=== PATIENT | male | born 1970 | race Caucasian/White ===

== ENCOUNTER 2017-12-09 10:57 | Observation (INO) | payer BC ==
[2017-12-09 12:06] LABS: Troponin I Less than 0.010 ng/mL (< 0.028)
[2017-12-09] MEDS ORDERED: Acetaminophen 325 MG TAB PO PRN (13:19)
[2017-12-09 13:44] VITALS: BMI 30.7
[2017-12-09] MEDS ORDERED: Aspirin 325 MG TAB PO SCH (14:00)
[2017-12-09 14:25] LABS: Troponin I Less than 0.010 ng/mL (< 0.028)
--- NOTE | 2017-12-09 14:40 | PDOC.FPRHP ---
- History of Present Illness Chief Complaint: chest pain History of Present Illness: 47 yo male with PMH HTN, HLD, STEMI with 2 stents placed in 2017. Presenting today for chest pain. Woke him up from rest this morning with 4/10 chest pressure mid-sternal. Lasted for about an hour and went away on its own. Woke back up later with chest pain and numbness in left arm. Assoc diaphoresis. No N/ V/D, [facility], vision disturbances, SOB. Patient's doctor is Dr. Mason in [place]. Was last seen there 2 months ago. - Allergies/Adverse Reactions Allergies Allergy/AdvReac Type Severity Reaction Status Date / Time No Known Allergies Allergy Verified 12/09/17 13:51 - Home Medications Medication Instructions Recorded Confirmed Type Carvedilol [Coreg] 3.125 mg PO BID #60 tab 06/16/16 12/09/17 Rx Clopidogrel Bisulfate [Plavix] 75 mg PO DAILY #30 tab 06/16/16 12/09/17 Rx Aspirin [Aspirin Chewable Tablet] 81 mg PO 209912/09/17 12/09/17 History Lisinopril 10 mg PO 209912/09/17 12/09/17 History Rosuvastatin [Crestor] 20 mg PO 209912/09/17 12/09/17 History - History PMHx: HTN, HLD, Hx of STEMI PSHx: stent placed x2 May 2016 FHx: Dad: HTN, DMII - Review of Systems General: denies: fever/chills Eyes: denies: eye pain, vision changes ENT: denies: nasal congestion, rhinorrhea Respiratory: denies: cough, shortness of breath Cardiovascular: reports: chest pain. denies: edema Gastrointestinal: denies: nausea, vomiting, diarrhea, abdominal pain Genitourinary: denies: incontinence, dysuria Skin: denies: rashes, lesions Musculoskeletal: reports: other (chronic back pain) Neurological: reports: numbness (left arm). denies: syncope - Vital signs BP: 110/72 HR: 60 RR: 18 Tmax: 97.2 Pox: 98% on RA Wt: 94kg - Physical Exam Constitutional: NAD, awake, alert and oriented, well developed HEENT: normocephalic and atraumatic, PERRLA, EOMI, grossly normal vision, MMM, oropharynx clear Neck: supple, FROM, no thyromegaly Heart: RRR, normal S1/S2, no edema Lungs: CTAB, no respiratory distress, no wheezing Abdomen: soft, non-tender, bowel sounds present Musculoskeletal: normal structure, normal tone, ROM grossly normal Neurological: no focal deficit, CN II-XII intact, normal sensation Skin: no rash/lesions Heme/Lymphatic: no unusual bruising or bleeding Psychiatric: normal mood and affect, good judgment and insight FMR H&P: Results - EKG Interpretation EKG: anterior infarct possible inferior infarct Need to compare to May 2016 EKGs because he had similar STEMI at that time and this could be old FMR H&P: A/P - Problem List (1) Chest pain, rule out acute myocardial infarction Current Visit: Yes Status: Acute Code(s): R07.9 - CHEST PAIN, UNSPECIFIED (2) HTN (hypertension) Current Visit: Yes Status: Acute Code(s): I10 - ESSENTIAL (PRIMARY) HYPERTENSION (3) HLD (hyperlipidemia) Current Visit: Yes Status: Acute Code(s): E78.5 - HYPERLIPIDEMIA, UNSPECIFIED (4) History of ST elevation myocardial infarction Current Visit: Yes Status: Acute Code(s): I25.2 - OLD MYOCARDIAL INFARCTION - Plan 1. CP r/o NSTEMI - Hx of STEMI in May 2016. Received cath with [address] Alston at that time - CE negative x3 - HEART score 4 - based on history, will stress in the morning - hold food, coreg, plavix after midnight 2. HTN - continue home lisinoprol 3. HLD - continue rosuvistatin Attending Addendum - Attending Addendum Date/Time: 12/09/172141 I personally evaluated the patient and discussed the management with Dr. Laughlin I agree with the History, Examination, Assessment and Plan documented above with any addition or exceptions noted below- Briefly this is a 47 year old male with h/o CAD s/p DE 05/2016 s/p stent placement 05/2016 presented c/o substernal pressure like chest pain similar to pain when he had his DE. Pain radiated down hie left arm. Denies any associated N/V, SOB. (+) diaphoresis. States that he has had cardiology follow-up since his DE and is compliant with his medications. States that he has not had any follow-up testing since his DE. PMH/ PS/All/Meds reviewed and agree with resident's documentation. Afebrle VSS exam repeated by me and agree with resident's findings. Labs: trop I <0.010 x 3. EKS - NSR, no acute ST changes; no change from EKG in 01/2017. A/P: 1) Chest pain - HEART score=4; plan for cardiac stress test and echo. Continue home meds.
[2017-12-09 17:34] LABS: Troponin I Less than 0.010 ng/mL (< 0.028)
[2017-12-09] MEDS ORDERED: Lisinopril 10 MG TAB PO SCH (21:00)
[2017-12-09] MEDS ORDERED: Rosuvastatin 20 MG TAB PO SCH (21:00)
[2017-12-10 06:28] LABS: #Eosinphils 0.2 thou/uL (0.0-0.7); #Lymphocytes 1.7 thou/uL (1.20-3.40); #Monocytes 0.8 thou/uL (0.11-0.59); #Neutrophils 7.3 thou/uL (1.40-6.50); %Basophils 0.4 % (0.0-1.0); %Lymphocytes 16.9 % (21.0-51.0); %Neutrophils 72.7 % (42.0-75.0); Hemoglobin 16.7 g/dL (14.0-18.0); Mean Corpuscular Hemoglobin 35.1 pg (27.0-31.0); Mean Corpuscular Volume 97.4 fL (78.0-98.0); Mean Platelet Volume 7.5 fL (7.4-10.4); Platelet Count 126 thou/uL (130-400); RBC Distribution Width 11.9 % (11.5-14.5); Red Blood Cell (RBC) Count 4.75 mill/uL (4.70-6.10); White Blood Cell (WBC) Count 10.1 thou/uL (4.8-10.8)
[2017-12-10 06:51] LABS: ALT (SGPT) 40 U/L (8-55); AST (SGOT) 39 U/L (5-34); Albumin 3.9 g/dL (3.5-5.0); Alkaline Phosphatase 88 U/L (40-150); Anion Gap 13 mmol/L (10-20); BUN (Urea Nitrogen) 10 mg/dL (8.9-20.6); Bilirubin, Total 1.8 mg/dL (0.2-1.2); Calc. Creatinine Clearance 138 mL/min (70-130); Calcium 9.1 mg/dL (7.8-10.44); Carbon Dioxide 24 mmol/L (22-29); Chloride 105 mmol/L (98-107); Estimated GFR-MDRD 90; Globulin 2.9 g/dL (2.4-3.5); Glucose 97 mg/dL (70-105); Potassium 3.6 mmol/L (3.5-5.1); Protein, Total 6.8 g/dL (6.0-8.3); Sodium 138 mmol/L (136-145)
--- NOTE | 2017-12-10 08:42 | PDOC.FM ---
- Subjective Subjective: Loose stools x2. Aside from that NAEO. Chest pain has resolved. Patient reports feeling "better" overall. - Objective MAR Reviewed: Yes Vital Signs & Weight: Vital Signs (12 hours) Temp Pulse Resp BP BP Pulse Ox 12/10/17 07:31 98.5 F 61 18 12/10/17 07:21 98.2 F 65 20 101/58 L 95 12/10/17 04:22 98.5 F 61 18 116/71 95 12/09/17 21:06 117/73 Weight Weight 95.345 kg I&O: 12/09/17 12/10/17 12/11/17 06:59 06:59 06:59 Intake Total 860 Balance 860 Result Diagrams: 12/10/17 06:13 12/10/17 06:13 <Chantell Payne - Last Filed: 12/10/17 14:54> - Objective Vital Signs & Weight: Vital Signs (12 hours) Temp Pulse Resp BP BP Pulse Ox 12/10/17 11:51 98.0 F 72 18 120/73 96 12/10/17 07:31 98.5 F 61 18 12/10/17 07:21 98.2 F 65 20 101/58 L 95 12/10/17 04:22 98.5 F 61 18 116/71 95 Weight Weight 95.345 kg I&O: 12/09/17 12/10/17 12/11/17 06:59 06:59 06:59 Intake Total 860 Balance 860 Result Diagrams: 12/10/17 06:13 12/10/17 06:13 <Gustavo Walls - Last Filed: 12/10/17 16:11> Phys Exam - Physical Examination Constitutional: NAD Neck: supple Cardiovascular: RRR, no significant murmur Gastrointestinal: soft, non-tender Musculoskeletal: no edema Psychiatric: normal affect, A&O x 3 <Chantell Payne - Last Filed: 12/10/17 14:54> Dx/Plan (1) Chest pain, rule out acute myocardial infarction Code(s): R07.9 - CHEST PAIN, UNSPECIFIED Status: Acute (2) HLD (hyperlipidemia) Code(s): E78.5 - HYPERLIPIDEMIA, UNSPECIFIED Status: Acute (3) HTN (hypertension) Code(s): I10 - ESSENTIAL (PRIMARY) HYPERTENSION Status: Acute (4) History of ST elevation myocardial infarction Code(s): I25.2 - OLD MYOCARDIAL INFARCTION Status: Acute - Plan Plan: 1. Typical Chest Pain r/o NSTEMI - Hx of STEMI in May 2016 (confirmed with prior EKGs). Received cath with [address] Alston at that time - Cardiac enzymes negative x3 - HEART score 4 - Stress test (part 2) this AM - Echo -Consulted Dr. Means who recommended we re-consult if stress test comes back positive. We kindly appreciate her recommendations. 2. HTN - continue home lisinoprol 3. HLD - continue rosuvistatin 4. Thrombocytopenia -Plts 126 down from 127. Prior records show Plts in same level around 05/2016 ( prior STEMI) -Will investiage further 5. Hyperbilirubinemia -Improvin.0 -> 1.82 6. Elevated AST -Improving 51-> 39 DVT ppx: SCDs Code: Full Plan discussed with Dr. Walls <Chantell Payne - Last Filed: 12/10/17 14:54> Attending Addendum - Attending Addendum Date/Time: 12/10/17 [id number] I personally evaluated the patient and discussed the management with Dr. Liza Payne. I agree with the History, Examination, Assessment and Plan documented above with any addition or exceptions noted below. Totally asymptomatic over night and this morning. Feels well. Afebrile V/S Stable. Lungs: CTA, Cor: RRR, no murmur. Abd: neg. No edema. Stress test completed but results still pending at the time of my visit at 12: 30. Await results before disposition. <Gustavo Walls - Last Filed: 12/10/17 16:11>
--- NOTE | 2017-12-10 13:34 | NM ---
NUCLEAR MEDICINE CARDIAC PERFUSION EXAMINATION: History: 47-year-old male with chest pain. History of coronary artery disease and prior myocardial in farction. Technique: A two day Nuclear Medicine cardiac perfusion examination was performed. Rest images were o btained using 21.5 mCi Technetium 99M Sestamibi. Stress images were obtained giving 27.1 mCi Techneti um 99M Sestamibi at peak of exercise on a treadmill using a Aditya protocol. The patient achieved 91% maximum projected heart rate. FINDINGS: There is a large size, severe intensity fixed perfusion defect at the apex from prior myocardial infa rction. No obvious reversible perfusion defect is seen. Gated images show apical hypokinesis with ejection fraction of 48%. EDV: 140 ml. LHR: 0.3 TID: 0.9 IMPRESSION: 1. No evidence of ischemia. 2. Fixed defect at the apex from prior myocardial infarction. POS: [facility]RAD
[2017-12-10 16:38] VITALS: BP 121/75; TEMP 97.2
--- NOTE | 2017-12-11 11:57 | DIS-2 ---
DATE OF ADMISSION: 12/09/2017 DATE OF DISCHARGE: 12/10/2017 RESIDENT: Chantell Payne. ADMITTING ATTENDING: Dr. Daquan Momin. DISCHARGE ATTENDING: Dr. Gustavo Walls. CONSULTATIONS: None. PROCEDURES: Nuclear stress test. PRIMARY DIAGNOSIS: Acute coronary syndrome rule out [id number] myocardial infarction. SECONDARY DIAGNOSES: Hypertension, hyperlipidemia, history of myocardial infarction status post cath x2 stents in 2017. DISCHARGE MEDICATIONS: Continued all home medications. No added medications in hospital. 1. Carvedilol 3.125 mg p.o. b.i.d. 2. Clopidogrel bisulfate (Plavix) 75 mg p.o. daily. 3. Lisinopril 10 mg p.o. daily. 4. Aspirin 81 mg p.o. daily. 5. Crestor 20 mg p.o. daily. DISCONTINUED MEDICATIONS: None. HISTORY OF PRESENT ILLNESS AND HOSPITAL COURSE: Mr. Cunha is a 47-year-old male with past medica l history of [place] status post catheterization x2 stents in 2017, who presented with 2 episodes of typic al chest pain. It was 4/10, described as pressure, midsternal, lasting 1 hour and resolved on its ow n. Second episode was later that evening involving left arm numbness and diaphoresis. Visited the [facility] ED where they gave him nitroglycerin and aspirin, which relieved the pain. He was then t ransferred to [place] for ACS rule out NSTEMI workup. EKG showed old inferior infarcts. Another EKG in 2017 showed STEMIs in the anterior leads. He was given a score of 4. Cardiac enzymes w ere negative x3. He underwent nuclear stress test which showed no evidence of ischemia and a fixed d efect at the apex from prior myocardial infarction. His echo was negative as well showed an ejection fraction was estimated to be 60-65% with apical hypokinesis. Normal right ventricular size and func tion. Left atrium is normal size. Right atrium normal size. Presence of mild tricuspid regurgitati on and mild to moderate pulmonic regurgitation present. In addition, chest x-ray taken in the ED [facility] had no signs of acute intrathoracic disease. After discussion with Dr. Means with a negative s tress test, patient was discharged home continuing all home medications. DISPOSITION: Stable. DISCHARGE INSTRUCTIONS: 1. Location: Home. 2. Diet: Heart healthy diet. 3. Activity: As tolerated. 4. Follow up with PCP, Chantell Payne in 7-10 days and sr. payroll processor in [place] .
--- NOTE | 2017-12-16 11:34 | EKG ---
Test Reason : Blood Pressure : / mmHG Vent. Rate : 048 BPM Atrial Rate : 048 BPM P-R Int : 130 ms QRS Dur : 082 ms QT Int : 422 ms P-R-T Axes : 016 -26 006 degrees QTc Int : 376 ms Marked sinus bradycardia Possible Inferior infarct , age undetermined Anterior infarct , age undetermined Abnormal ECG Confirmed by MELE PENA, HERLINDA ([id number]), editor producer RHEA GOOD ([id number]) on 12/16/2017 11:33:57 AM Referred By: Confirmed By:HERLINDA SHABAZZ MD
== END 2017-12-10 18:37 | disposition home or self-care (01) ==
LOC: ERS 10:57 → 2SW 13:00
PROVIDERS: ADMIT Family Medicine; ATTEND Family Medicine
DX: I24.9 Acute ischemic heart disease, unspecified (principal); I10 Essential (primary) hypertension; E78.5 Hyperlipidemia, unspecified; I25.2 Old myocardial infarction; Z79.02 Long term (current) use of antithrombotics/antiplatelets; Z79.82 Long term (current) use of aspirin; Z79.899 Other long term (current) drug therapy
CPT/HCPCS: 36415; 78452; 80053; 84443; 85025; 93005; 93017; 93306; A9500; G0378